=== PATIENT | male | born 1990 | race Caucasian/White ===

== ENCOUNTER 2025-01-09 13:48 | Outpatient (CLI) | payer OTHER, SELFPAY ==
--- NOTE | ~2025-01-09 | US_ITS ---
US scrotum doppler INDICATION: Right scrotal mass for 2 months. No injury. TECHNIQUE: Testicular sonogram utilizing grayscale and color Doppler FINDINGS: There is bilateral testicular microlithiasis. There are no discrete intratesticular masses. The right testes measures 5.1 x 3.1 x 2.7 cm centimeters, and the left testis measures 5.0 x 3 x 2.5 cm cm. There is normal vascular flow to both testes. The right and left epididymides appear normal. There is a complex septated right hydrocele. There are bilateral varicoceles. There are extratesticul ar calcifications in the right scrotum, statistically likely benign. IMPRESSION: 1. Septated right hydrocele. 2: Bilateral varicoceles. 3: Testicular microlithiasis. Right extratesticular calcifications, statistically likely benign. Reviewed, dictated and finalized at location A. IMPRESSION: 1. Septated right hydrocele. 2: Bilateral varicoceles. 3: Testicular microlithiasis. Right extratesticular calcifications, statistical ly likely benign.
== END 2025-01-09 13:49 | disposition home or self-care (01) ==
LOC: GOSHIMG 13:49
PROVIDERS: PCP Family Medicine; Visit Provider Family Medicine
DX: N50.89 Other specified disorders of the male genital organs (principal); N43.3 Hydrocele, unspecified; I86.1 Scrotal varices
CPT/HCPCS: 76870; 93976

== ENCOUNTER 2025-01-26 19:00 | Emergency (ER) | payer OTHER, SELFPAY ==
[2025-01-26 19:08] VITALS: BP 124/85; PULSE 97; RESP 18; TEMP 36.8; O2SAT 100
--- NOTE | 2025-01-26 19:23 | ED_ITS ---
HPI - Allergic Reaction General Chief complaint: Allergic Reaction Stated complaint: Ear Pain Time Seen by Provider: 01/26/25 19:10 Source: patient and RN notes reviewed Mode of arrival: ambulatory Limitations: no limitations History of Present Illness HPI narrative: 34-year-old male presents [facility] complaining of bee sting to his left ear. Patient said this thing occurred approximately 45 minutes ago. Patient reports swelling to his left ear, red rash and hives to his trunk and neck. Patient denies any difficulty breathing, wheezing, face or throat swelling, lip swelling, abdominal pain, difficulty clearing secretions or nausea, vomiting. Patient reports feeling like there is something in his esophagus . The patient denies any difficulty swallowing. Patient has a history of eosinophilic esoph agitis. Patient took 2 Zyrtec prior to arrival. Related Data Allergies Allergy/AdvReac Type Severity Reaction Status Date / Time milk Allergy Unknown Unknown Verified 01/26/25 19:07 Review of Systems Review of Systems: CONSTITUTIONAL: Denies fever, chills, or sweats. EYES: Denies visual changes, redness, or discharge. ENT: Denies rhinorrhea, congestion, sore throat, difficulty swallowing, difficulty clearing secretions, lip swelling, or otalgia. Positive for left ear swelling CARDIOVASCULAR: Denies chest pain, palpitations, or edema. RESPIRATORY: Denies cough, wheezing, difficulty breathing, or dyspnea. GASTROINTESTINAL: Denies abdominal pain, nausea, vomiting, or diarrhea. GENITOURINARY: Denies dysuria or hematuria. SKIN: Positive for rash, itching, hives. MUSCULOSKELETAL: Denies back pain, joint pain, or myalgia. NEUROLOGIC: Denies headache, numbness, or weakness. PSYCHIATRIC: Denies anxiety or depression. All other systems reviewed are negative, except as documented in HPI. [facility] Past Medical History Medical History Eosinophilic esophagitis Vasectomy planned Pectus excavatum Left varicocele Surgical History Surgical History H/O adenoidectomy History of tonsillectomy Family History Family History Father Hypertension Mother Patient's mother is in good health Grandparent Family history of malignant neoplasm of esophagus Family history of malignant neoplasm of ovary Social History Social History Social History: Coffee daily Smoking status: Never smoker Alcohol intake: current Drinks per week: 5 Substance use: never Substance use type: does not use Do You Feel Safe in your Home?: Yes Comments At the time of my signature, I reviewed and agree with the nursing past medical, surgical, social, and family history. There is no relevant family history pertinent to the patient complaint. Exam Narrative: GENERAL: This is a well-nourished, well-developed adult, in no apparent distress. They are non ill-appearing, nontoxic appearing. HEAD: normocephalic, atraumatic. EYES: Sclera clear/white. Conjunctiva normal. Vision is grossly intact. Extraocular movements intact. Pupils PERRLA. EARS: Left external ear is erythematous. Right external ears normal. Auditory canals clear and without drainage, TMs normal without perforation. Hearing grossly intact. NOSE: External nose normal with no obvious nasal discharge, nasal turbinates without redness, no rhinorrhea. THROAT: Mucous membranes moist, posterior pharynx clear, without erythema or swelling. Uvula midline. Tonsils 2+. NECK: Neck supple, non-tender without lymphadenopathy, swelling, masses or thyromegaly. CARDIOVASCULAR: Regular rate and rhythm without murmurs, gallops, or rubs. RESPIRATORY: Clear to auscultation. Breath sounds equal bilaterally. No wheezes, rales, or rhonchi. Respiratory rate normal, respiratory effort nonlabored, no respiratory distress, no retractions. GASTROINTESTINAL: Abdomen soft, non-tender, nondistended. Bowel sounds are active. No hepato-splenomegaly, or palpable masses. No guarding. SKIN: Red pruritic macular rash present with wheals spread throughout the patient's trunk and neck. NEURO: awake, alert, and oriented to person, place and time. There were no obvious focal neurologic abnormalities. EXTREMITIES: No joint tenderness, effusion, or edema noted. BACK: Nontender without deformity. No CVA tenderness. Course Course Emergency Course: Portions of this record may have been created with voice recognition software Level of Care: Express Care Visit Vital Signs Vital signs: Vital Signs Temperature 98.2 F 01/26/25 19:08 Pulse Rate 97 01/26/25 19:08 Respiratory Rate 18 01/26/25 19:08 Blood Pressure 124/85 01/26/25 19:08 Pulse Oximetry 100 01/26/25 19:08 Oxygen Delivery Room Air 01/26/25 19:08 Temperature 98.2 F 01/26/25 19:08 Pulse Rate 97 01/26/25 19:08 Respiratory Rate 18 01/26/25 19:08 Blood Pressure 124/85 01/26/25 19:08 Pulse Oximetry 100 01/26/25 19:08 Oxygen Delivery Room Air 01/26/25 19:08 Reviewed MDM - Allergic Reaction MDM Narrative Medical decision making narrative: Patient is exhibiting no sign of shock or respiratory compromise. Patient's vital signs are hemodynamically stable. Patient showing no signs of respiratory distress or swelling to his face, throat, neck. Patient states he feels like something was stuck in the back of his throat however no obvious swelling to throat upon examination. Patient denies any difficulty clearing secretions. Patient does not have any cough. Patient's lung sounds are clear to auscultation. Patient does have a diffuse rash and urticaria throughout his trunk and neck. Patient denies any abdominal pain, nausea, vomiting, diarrhea, or cough. Patient was given a shot of Solu-Medrol, oral Pepcid, and oral Benadryl. 1929 -after medication administration, rash is significantly improved and has subsided from his neck. Patient reports feeling a lot better. Patient denies any swelling her difficulty breathing. 1999 -rash is almost completely resolved. Rash remains on patient's trunk. Patient continues to feel a lot better. The patient is in no acute distress, lung sounds remain clear to auscultation. Discussed with patient through shared decision making about further observation emergency department in case symptoms return. Patient adamantly does not want to go to the emergency room and feels comfortable going home and managing symptoms. Will prescribe patient an EpiPen, Medrol Dosepak, Pepcid, albuterol inhaler to manage symptoms at home. Anticipatory guidance discussed. Patient advised if he uses the EpiPen he needs to go to the ER immediately. Strict ER precautions were discussed with patient. Patient is stable for outpatient follow-up. Differential Diagnosis Differential diagnosis: Likely anaphylaxis, allergic reaction and angioedema Critical Care Time Critical Care Time Critical Care Time: No Discharge Plan Discharge Clinical Impression: Allergic reaction Qualifiers: Encounter type: initial encounter Qualified Code(s): T78.40XA - Allergy, unspecified, initial encounter Patient Disposition: Home Condition: Stable Instructions: Anaphylaxis (ED), General Allergic Reaction (ED) Additional Instructions: Please take the prednisone as prescribed. Please take it with food in the morning. May take additional Benadryl in 4-6 hours if your rash persists. Please take the Pepcid as directed. Use the EpiPen for any signs of anaphylaxis. If you develop any swelling to her face, lips, throat, tongue, neck, any wheezing, difficulty breathing, nausea, vomiting, difficulty clearing her secretions, or any other concerns please go to the ER immediately. Please go to the ER if you use your EpiPen. Please follow- up with your primary care provider in 3-5 days. Patient Language: Iranian Prescriptions: New albuterol sulfate [Ventolin HFA] 90 mcg/actuation HFA aerosol inhaler 2 puff inhalation QID PRN (Reason: shortness of breath or wheezing) Qty: 8.5 0RF methylprednisolone 4 mg tablets,dose pack See Rx Instructions .ROUTE .COMPLEX Qty: 21 0RF Rx Instructions: for 6 days epinephrine [Auvi-Q] 0.3 mg/0.3 mL auto-injector 0.3 mg IM ONCE PRN (Reason: anaphylaxis) Qty: 2 0RF Rx Instructions: Go to the emergency department immediately if you use the epi-pen famotidine [Pepcid] 40 mg tablet 40 mg PO DAILY 5 Days Qty: 5 0RF Follow-up/Referrals: PHYSICIAN,PACKING MACHINE TENDER [Primary Care Provider] - Time of Disposition: 20:07
[2025-01-26] MEDS: diphenhydrAMINE HCl CAP 25 MG CAPSULE 50 MG PO (19:28)
[2025-01-26] MEDS: FAMOTIDINE 20 MG TABLET 40 MG PO (19:29)
[2025-01-26] MEDS: methylPREDNISolone SOD SUCC 125 MG VIAL IM (19:29)
== END 2025-01-26 20:16 | disposition home or self-care (01) ==
DX: T63.441A Toxic effect of venom of bees, accidental (unintentional), initial encounter (principal); K20.0 Eosinophilic esophagitis
CPT/HCPCS: 96372; 99213; A9270; G0463; J2919